=== PATIENT | female | born 1950 | race Caucasian/White ===

== ENCOUNTER 2016-04-11 17:52 | Emergency (ER) | payer OTHER ==
[~2016-04-11] VITALS: Ht 167.6 cm; Wt 95.6 kg
[2016-04-11 18:00] VITALS: TEMP 36.5; Ht 167.6 cm; Wt 95.6 kg
[2016-04-11] MEDS ORDERED: GABA-113 PO (18:25)
[2016-04-11] MEDS ORDERED: LEVO88TA3 PO (18:25)
[2016-04-11] MEDS ORDERED: CLON1TAB3 PO (18:25)
[2016-04-11] MEDS ORDERED: SIMV-151 PO (18:25)
[2016-04-11] MEDS ORDERED: NRV/5 PO (18:25)
[2016-04-11] MEDS ORDERED: LISI-461 PO (18:25)
[2016-04-11] MEDS ORDERED: CYAN10005 PO (18:25)
[2016-04-11] MEDS ORDERED: AGG PO (18:25)
[2016-04-11] MEDS ORDERED: FLUO40CA8 PO (18:25)
[2016-04-11] MEDS ORDERED: METO25TA3 PO (18:25)
[2016-04-11] MEDS ORDERED: FLV400 PO (18:25)
[2016-04-11] MEDS ORDERED: CLB/200 PO (18:25)
[2016-04-11] MEDS ORDERED: NXM/40 PO (18:25)
[2016-04-11] MEDS ORDERED: VTMD1000 PO (18:25)
[2016-04-11] MEDS ORDERED: HYDROmorphone INJ 2 MG/ML SYR/VIAL IV STA (19:04)
[2016-04-11] MEDS ORDERED: SODIUM CHLORIDE 0.9% 1000ML 500 ML IV STA (19:04)
[2016-04-11] MEDS ORDERED: PROCHLORPERAZINE 5 MG/ML 2 ML VIAL IV STA (19:04)
[2016-04-11] MEDS ORDERED: DiphenhydrAMINE HCL 50 MG/ML VIAL IV STA (19:04)
--- NOTE | 2016-04-11 19:44 | EMERGENCY ROOM VISIT NOTE ---
History Report prepared by Tyler: Jack Tian Under the Supervision of: Dr. Marv Bazzi M.D. First contact with patient: 18:59 Chief Complaint: HEADACHE Stated Complaint: BACK AND CHEST PAIN, ARMS NUMB History of Present Illness The patient is a 65 year old female who presents to the Emergency Room with complaints of an intermittent left sided headache beginning ten days prior to arrival. She currently rates her discomfort as an 8/10 in severity. The patient associates intermittent lip numbness, intermittent left sided face numbness, intermittent bilateral arm heaviness, intermittent left arm tingling, intermittent left jaw pain, and weakness with today's symptoms. She states she was seen at [facility] several days ago, and they believed the patient may have had a mini stroke. The patient notes they performed a CT and two MRIs, in which, one of the MRIs noted something about the fluid around her spine and neck. She states she has a flat spot and the doctors wanted her to see a neurosurgeon. The patient notes she has a follow up appointment with [facility] in five days. She states she took a new pain medication today that did not help her symptoms. The patient notes she also takes Gabapentin. She denies a history of migraines or anyone noting her symptoms may be caused by a migraine. The patient notes she experienced a sharp, burning pain in her head two days ago. She states she takes a low dose Aspirin daily. The patient denies a rash. 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 A total of 10 systems reviewed and were otherwise negative. Past Medical & Surgical Medical Problems: (1) No pertinent past medical history Family History Patient reports no known family medical history. Social History Smoking Status: Never Smoker Marital Status: Occupation Status: unemployed Current/Historical Medications Scheduled Amlodipine Besylate (Amlodipine Besylate), 0.5 TAB PO DAILY Celecoxib (CeleBREX), 200 MG PO DAILY Cholecalciferol (Vitamin D3), 2 TABS PO DAILY Clonazepam (Klonopin), 0.5 MG PO PRN Cyanocobalamin (Vitamin B-12), 1 TAB PO DAILY Dipyridamole/Aspirin (Aggrenox 25-200 mg), 1 CAP PO BID Esomeprazole Magnesium (Nexium), 40 MG PO BID Fluoxetine (Prozac), 40 MG PO DAILY Folic Acid (Folic Acid), 1 TAB PO DAILY Gabapentin (Neurontin), 300 MG PO BID Levothyroxine Sodium (Levothyroxine Sodium), 1 TAB PO DAILY Lisinopril (Lisinopril), 1 TAB PO DAILY Metoprolol Succ (Toprol Xl) (Toprol-Xl), 25 MG PO BID Simvastatin (Simvastatin), 1 TAB PO HS Allergies Coded Allergies: Ibuprofen (Verified Allergy, Unknown, high doses make her sick, 04/11/16) Physical Exam Vital Signs Date Time Temp Pulse Resp B/P Pulse Ox O2 Delivery O2 Flow Rate FiO2 04/11/16 21:27 63 16 107/58 97 04/11/16 20:36 64 16 102/64 96 Room Air 04/11/16 19:42 64 16 113/71 99 Room Air 04/11/16 18:00 36.5 74 22 118/78 98 Room Air Physical Exam GENERAL: Patient is in no acute distress. HEENT: Tender over the left temporal area and left scalp, no rash. No acute trauma, normocephalic atraumatic, mucous membranes moist, no nasal congestion, no scleral icterus. NECK: No stridor, no adenopathy, no meningismus, trachea is midline. LUNGS: Clear to auscultation bilaterally, no wheeze, no rhonchi, breath sounds equal. HEART: Without murmurs gallops or rubs, regular rate and rhythm. ABDOMEN: Soft, nontender, bowel sounds positive, no hernias, no peritonitis. EXTREMITIES: No cyanosis or edema, full range of motion of all the joints without pain or difficulty, no signs for acute trauma. NEUROLOGIC: Oriented x 3, no acute motor or sensory deficits, no focal weakness. No pronator drift or cerebellar dysfunction. SKIN: No rash, no jaundice, no diaphoresis. Medical Decision & Procedures ER Provider Diagnostic Interpretation: 04/01: [facility] CT Brain showed no acute findings. No evidence for bleeding. 04/02: [facility] Brain MRI did not show any evidence for an acute stroke. Carotid Artery US that showed no concerning stenosis. 04/03: [facility] CT scan of Cervical Spine showed a lot of arthritis. Some anterior CSF space narrowing from the degenerative change. 04/06: [facility] Left Upper Extremity Ultrasound showed no DVT. Laboratory Results 04/11/16 19:35 Red Blood Count 4.17, Mean Corpuscular Volume 86.1, Mean Corpuscular Hemoglobin 29.3, Mean Corpuscular Hemoglobin Concent 34.0, Mean Platelet Volume 9.3, Neutrophils (%) (Auto) 43.7, Lymphocytes (%) (Auto) 45.8, Monocytes (%) (Auto) 8.7, Eosinophils (%) (Auto) 1.2, Basophils (%) (Auto) 0.5, Neutrophils # (Auto) 3.22, Lymphocytes # (Auto) 3.38, Monocytes # (Auto) 0.64, Eosinophils # (Auto) 0.09, Basophils # (Auto) 0.04 04/11/16 19:35 Test 04/11/16 19:35 White Blood Count 7.38 K/uL (4.8-10.8) Red Blood Count 4.17 M/uL (4.2-5.4) Hemoglobin 12.2 g/dL (12.0-16.0) Hematocrit 35.9 % (37-47) Mean Corpuscular Volume 86.1 fL (80-100) Mean Corpuscular Hemoglobin 29.3 pg (25-34) Mean Corpuscular Hemoglobin Concent 34.0 g/dl (32-36) Platelet Count 270 K/uL (130-400) Mean Platelet Volume 9.3 fL (7.4-10.4) Neutrophils (%) (Auto) 43.7 % Lymphocytes (%) (Auto) 45.8 % Monocytes (%) (Auto) 8.7 % Eosinophils (%) (Auto) 1.2 % Basophils (%) (Auto) 0.5 % Neutrophils # (Auto) 3.22 K/uL (1.4-6.5) Lymphocytes # (Auto) 3.38 K/uL (1.2-3.4) Monocytes # (Auto) 0.64 K/uL (0.11-0.59) Eosinophils # (Auto) 0.09 K/uL (0-0.5) Basophils # (Auto) 0.04 K/uL (0-0.2) RDW Standard Deviation 44.3 fL (36.4-46.3) RDW Coefficient of Variation 14.0 % (11.5-14.5) Immature Granulocyte % (Auto) 0.1 % Immature Granulocyte # (Auto) 0.01 K/uL (0.00-0.02) Erythrocyte Sedimentation Rate 24 mm/hr (0-21) Urine Color YELLOW Urine Appearance CLEAR (CLEAR) Urine pH 5.5 (4.5-7.5) Urine Specific [place] 1.010 (1.000-1.030) Urine Protein NEG (NEG) Urine Glucose (UA) NEG (NEG) Urine Ketones NEG (NEG) Urine Occult Blood NEG (NEG) Urine Nitrite NEG (NEG) Urine Bilirubin NEG (NEG) Urine Urobilinogen NEG (NEG) Urine Leukocyte Esterase NEG (NEG) Anion Gap 7.0 mmol/L (3-11) Est Creatinine Clear Calc Drug Dose 76.2 ml/min Estimated GFR () 81.0 Estimated GFR (Non- 69.9 BUN/Creatinine Ratio 15.9 (10-20) Calcium Level 8.8 mg/dl (8.5-10.1) Lyme Disease IgG Antibody NEG (NEG) Lyme Disease IgM Antibody NEG (NEG) Laboratory results reviewed by me. Medications Administered Medications (Trade) Dose Ordered Sig/June Route Start Time Stop Time Status Last Admin Dose Admin Sodium Chloride (Nss 1000ml) 500 ml @ 999 mls/hr Q31M STAT IV 04/11/16 19:04 04/11/16 19:34 DC 04/11/16 19:43 999 MLS/HR Prochlorperazine Edisylate (Compazine Inj) 5 mg NOW STAT IV 04/11/16 19:04 04/11/16 19:11 DC 04/11/16 19:43 5 MG Diphenhydramine HCl (Benadryl Inj) 25 mg NOW STAT IV 04/11/16 19:04 04/11/16 19:11 DC 04/11/16 19:43 25 MG Hydromorphone HCl (Dilaudid Inj) 0.5 mg NOW STAT IV 04/11/16 19:04 04/11/16 19:11 DC 04/11/16 19:43 0.5 MG ECG Indication: weakness Rate (beats per minute): 71 Rhythm: normal sinus Findings: no acute ischemic change, no ectopy ED Course 1900: The patient was evaluated in room C12B. A complete history and physical exam was performed. 1903: Ordered Dilaudid Inj 0.5 mg IV, Benadryl Inj 25 mg IV, Compazine Inj 5 mg IV, Sodium Chloride 500 ml @ 999 mls/hr IV. 2104: Reevaluated the patient. Discussed results and discharge instructions: She verbalized understanding and agreement. The patient is ready for discharge. Medical Decision The differential diagnoses include but are not limited to: migraine headache, complex migraine, temporal arteritis, stroke, intracranial bleeding, medication reaction, Lyme Disease. There is no leukocytosis or concerning anemia. No significant electrolyte abnormality, kidney failure or hepatitis. Sedimentation rate is not significantly elevated making temporal arteritis less likely. Urinalysis does not show infection. Lyme disease testing is negative. EKG shows a normal sinus rhythm, no acute ischemia. I did review the patient's brain CT, C-spine CT, brain MRI, left upper extremity venous ultrasound, carotid ultrasound results obtained at the [facility]. They were essentially all unremarkable except for arthritis of her cervical spine. The patient received IV saline, IV Compazine, IV Benadryl and IV Dilaudid, she feels improved. I do think she is stable for discharge. She does have an upcoming neurology appointment. She has no focal neurologic deficits on exam. The left scalp is tender with palpation. Her symptoms have been ongoing now for over a week. Certainly, migraine or complex migraine is a possible expiration for her symptoms. Impression Primary Impression: Left-sided headache Additional Impression: Left arm numbness Scribe Attestation The scribe's documentation has been prepared under my direction and personally reviewed by me in its entirety. I confirm that the note above accurately reflects all work, treatment, procedures, and medical decision making performed by me. Departure Information Dispostion Home / Self-Care Referrals Lizette Cowan PA-C (PCP) Forms HOME CARE DOCUMENTATION FORM, IMPORTANT VISIT INFORMATION Patient Instructions My [facility] Additional Instructions see neurology as scheduled return if worsening as discussed lab testing today was all ok proper sleep and hydration are important Problem Qualifiers
[2016-04-11 20:03] LABS: BASO % 0.5 %; BASO ABS # 0.04 K/uL (0-0.2); COMPLETE YES; EOS % 1.2 %; HEMATOCRIT 35.9 % (37-47); IG% 0.1 %; LYMPH % 45.8 %; LYMPH ABS # 3.38 K/uL (1.2-3.4); MEAN CELL VOLUME 86.1 fL (80-100); MEAN CORPUSCULAR HEMOGLOBIN 29.3 pg (25-34); MEAN PLATELET VOLUME 9.3 fL (7.4-10.4); MONO % 8.7 %; NEUT % 43.7 %; PLATELET COUNT 270 K/uL (130-400); RED BLOOD COUNT 4.17 M/uL (4.2-5.4); WHITE BLOOD COUNT 7.38 K/uL (4.8-10.8)
[2016-04-11 20:09] LABS: URINE APPEARANCE CLEAR (CLEAR); URINE BILIRUBIN NEG (NEG); URINE COLOR YELLOW; URINE NITRITE NEG (NEG); URINE PH 5.5 (4.5-7.5); UROBILINOGEN NEG (NEG); ZZUR CULT IF INDIC CLEAN CATCH NO
[2016-04-11 20:23] LABS: BUN/CREATININE RATIO 15.9 (10-20); CALCIUM 8.8 mg/dl (8.5-10.1); CREATININE 0.88 mg/dl (0.60-1.20); POTASSIUM 3.8 mmol/L (3.5-5.1)
[2016-04-11 20:25] LABS: MANUAL MICROSCOPIC REQUIRED? NO; REVIEW REQ? NO
[2016-04-11 20:59] LABS: LYME DISEASE AB IGG NEG (NEG); LYME DISEASE AB IGM NEG (NEG)
[2016-04-11 21:27] VITALS: BP 107/58; PULSE 63; O2SAT 97
== END 2016-04-11 21:20 | disposition home or self-care (01) ==
LOC: C.EDB 17:56 → C.EDC 21:20
DX: R51 Headache (principal); R20.0 Anesthesia of skin; Z79.82 Long term (current) use of aspirin; Z79.899 Other long term (current) drug therapy

== ENCOUNTER 2019-10-16 05:49 | Inpatient (IN) ==
--- NOTE | 2019-07-31 13:42 | History & Physical Report ---
Date of Service July 31, 2019 Assessment & Plan (1) Myelopathy concurrent with and due to spinal stenosis of cervical region: At this point patient has marked decline in status worsening neurologic function we are recommending urgent anterior cervical discectomy and fusion C4-5 and C5-6. Hopefully this will prevent permanent neurologic sequela and weakness. Risk benefits pros cons and targets outlined in detail. Present on Admission?: Yes History of Present Illness Chief Complaint: Neck with bilateral arm pain. Primary Care Provider: Lizette Cowan This is a 68-year-old male female that presents with worsening bilateral arm pain left greater than right. She also notices changes with fine motor skills involving her hands. She is undergone extensive course of nonoperative care including injections physical therapy and direct care professional. Allergies Allergy/AdvReac Type Severity Reaction Status Date / Time ibuprofen AdvReac Unknown high doses Verified 05/15/19 09:02 make her sick (N/V) Home Medications Home Medications Medication Instructions Recorded Confirmed Type amlodipine 2.5 mg PO DAILY 05/15/19 05/15/19 History aspirin [Aspir-81] 81 mg PO QAM 05/15/19 05/15/19 History celecoxib [Celebrex] 200 mg PO HS 05/15/19 05/15/19 History cholecalciferol (vitamin D3) 125 mcg PO DAILY 05/15/19 05/15/19 History [Vitamin D3] clonazepam [Klonopin] 0.5 - 1 mg PO UD PRN 05/15/19 05/15/19 History fluoxetine 60 mg PO QAM 05/15/19 05/15/19 History furosemide 20 mg PO QAM 05/15/19 05/15/19 History gabapentin 300 mg PO BID 05/15/19 05/15/19 History levothyroxine [Synthroid] 100 mcg PO QAM 05/15/19 05/15/19 History lisinopril 10 mg PO QAM 05/15/19 05/15/19 History metoprolol succinate 25 mg PO QAM 05/15/19 05/15/19 History pantoprazole 40 mg PO BID 05/15/19 05/15/19 History simvastatin 20 mg PO HS 05/15/19 05/15/19 History tramadol 50 mg PO HS 05/15/19 05/15/19 History Past Med/Surg History Social History Preferred Language: Colombian Communication Ability: Effective 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 She has reasonable testing to the bilateral finger intrinsics 4/5 bilateral biceps and deltoids. Heart is regular in rhythm Lungs clear to auscultation Results & Data Diagnostic Findings MRI of the cervical spine demonstrates evidence of multilevel spondylosis most impressive at C4-5 and C5-6. There is severe central stenosis with disc osteophyte complex and cord contour change across these levels.
--- NOTE | 2019-10-12 11:40 | Anesthesiology Consultation ---
Date of Service October 12, 2019 Assessment & Plan (1) Encounter for pre-operative examination: Chart Review Chart Review: Acceptable Risk for Surgery (pending preop Covid test results and DOS labs ) and Patient NOT seen in Pre Admission Testing -We will order PRP DOS to check kidney function and glucose. Per nursing assessment 10/07/2019, patient denies any recent travel. No known COVID positive contacts or COVID related symptoms. Will await preop COVID testing results. Seen by cardio 06/02/2019 = seen for preop clearance for cervical neck surgery planned for June 08. 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 History of hypertension, dyslipidemia, and prior TIA. "With regards to upcoming surgery she should be able to proceed without further cardiac testing at a low to intermediate risk for periprocedural cardiac event. I have made no other changes." (pt's surgery was rescheduled due to Covid) History Surgery Operation Date: 10/16/19 07:45 Proposed Procedures p C4-C6 Anterior Cervical Discectomy and Fusion, Spinal Cord Monitoring - Hossein Ibarra, Height/Weight Height: 5 ft 5 in Weight: 97.522 kg Allergies Allergy/AdvReac Type Severity Reaction Status Date / Time ibuprofen AdvReac Unknown high doses Verified 10/07/19 15:55 make her sick (N/V) Medications Home Medications Medication Instructions Recorded Confirmed Last Taken amlodipine 2.5 mg PO QAM 05/15/19 10/07/19 Unknown aspirin [Aspir-81] 81 mg PO QAM 05/15/19 10/07/19 Unknown celecoxib [Celebrex] 200 mg PO HS 05/15/19 10/07/19 Unknown cholecalciferol (vitamin D3) 125 mcg PO QAM 05/15/19 10/07/19 Unknown [Vitamin D3] clonazepam [Klonopin] 0.5 - 1 mg PO UD PRN 05/15/19 10/07/19 Unknown fluoxetine 60 mg PO QAM 05/15/19 10/07/19 Unknown furosemide 20 mg PO QAM 05/15/19 10/07/19 Unknown gabapentin 300 mg PO BID 05/15/19 10/07/19 Unknown levothyroxine [Synthroid] 100 mcg PO QAM 05/15/19 10/07/19 Unknown lisinopril 10 mg PO QAM 05/15/19 10/07/19 Unknown metoprolol succinate 25 mg PO QAM 05/15/19 10/07/19 Unknown pantoprazole 40 mg PO BID 05/15/19 10/07/19 Unknown simvastatin 20 mg PO HS 05/15/19 10/07/19 Unknown tramadol 50 mg PO HS 05/15/19 10/07/19 Unknown Past Medical History Medical History Acid reflux Anxiety Arthritis Coronary vasospasm Documented on 2014 cath per cardio. Full cath report not available, but only mild luminal disease per office note. Depression Fatty liver Fluttering sensation of heart Not an issue since initiation of BB Hyperlipidemia Hypertension Hypothyroidism Nonobstructive atherosclerosis of coronary artery JEFERSON (obstructive sleep apnea) Could not tolerate CPAP PONV (postoperative nausea and vomiting) NAUSEA ONLY TIA (transient ischemic attack) 2016 Past Family History Family History Other Family history of diabetes mellitus Past Surgical History Surgical History History of appendectomy History of cardiac cath 12/25/17 2/2 abnormal stress echo. "Mild intimal coronary artery disease without any obstructive lesions." per cardiology note 07/2018 History of cholecystectomy History of colonoscopy History of elbow surgery R, NERVE History of endoscopy History of hysterectomy STOP BANG Total 2 Social History Smoking Status: Never smoker Do You Dip or Chew Tobacco: No Hx Alcohol Use: Yes alcohol intake frequency: holidays/special occasions only Hx Substance Use: No substance use type: prescription drug Testing Laboratory Results 09/25/19= WBC: 7.26 H/H: 12.8/40.6 PLATELETS: 260 SODIUM: 138 POTASSIUM: 3.8 CHLORIDE: 99 CO2: 27 PT: 13.1 INR: 0.99 UA CULTURE: Less than 10,000 colonies/mL. Mixed normal malini. Electrocardiogram Date: 05/21/19 Findings: + NSR @ (70bpm) Chest X-Ray Date: 05/21/19 Findings: + NAD Echocardiogram Date: 04/26/16 EF: 55% Indications: Evaluate cardiac source of emboli with history of TIA. LV normal in size and function. No significant valve disease. No obvious ASD or PFO identified. No left atrial appendage clot identified. No obvious cardiac source of emboli. Stress Test Date: 09/24/17 Type: nuclear Resting EF: 65% Lexiscan myocardial perfusion scan is positive for small area of Lexiscan induced myocardial ischemia. Small sized reversible defect of mild intensity present involving apex and apical inferior segments. EKG changes to IV Lexiscan cannot be interpreted because of acceleration dependent LBBB. Gated SPECT images reveal normal myocardial thickening and wall motion. Cardiac Catheterization Date: 12/25/17 LM- normal. LAD- mild luminal disease LCx- normal RCA- normal EF= 60%.
[2019-10-16] MEDS ORDERED: GABAPENTIN 300 MG CAP PO SCH ×2 (06:00→21:00)
[2019-10-16] MEDS ORDERED: ACETAMINOPHEN 500 MG TAB PO SCH (06:00)
[2019-10-16] MEDS ORDERED: LR 15ML/HR IV SCH (06:00)
[2019-10-16] MEDS ORDERED: CEFAZOLIN 2000MG 2,000 MG/15 ML SYR IV SCH (06:00)
[2019-10-16] MEDS ORDERED: CeleBREX 200 MG CAP PO SCH (06:00)
[2019-10-16] MEDS ORDERED: BACITRACIN INJ 50,000 UNIT VIAL ONE (06:58)
[2019-10-16] MEDS ORDERED: MIDAZOLAM HCL 1 MG/ML 2ML VIAL ONE (07:09)
[2019-10-16] MEDS ORDERED: DEXAMETHASONE SOD INJ 4 MG/ML VIAL ONE (07:09)
[2019-10-16] MEDS ORDERED: ONDANSETRON INJ 2 MG/ML 2 ML VIAL ONE (07:09)
[2019-10-16] MEDS ORDERED: SUCCINYLCHOLINE 100MG/5ML SYR IV ONE (07:09)
[2019-10-16] MEDS ORDERED: ROCURONIUM BROMIDE 10 MG/ML 5 ML VIAL IV ONE (07:09)
[2019-10-16] MEDS ORDERED: fentaNYL citrate 100 MCG/2 ML VIAL ONE ×2 (07:10→08:27)
[2019-10-16 07:14] LABS: BUN Creatinine Ratio 16.9 (10-20); Calcium 9.1 mg/dl (8.5-10.1); Creatinine Clr Calc Pharmacy 65.2 ml/min; Est GFR (Non-African American) 58.7; Potassium 3.4 mmol/L (3.5-5.1)
--- NOTE | 2019-10-16 07:24 | History & Physical Bridge Note ---
Date of Service October 16, 2019 History & Physical Bridge Note I have examined the patient, reviewed the History & Physical and in the interval since the performance of the History & Physical I have noted the following changes of clinical significance: no changes noted
--- NOTE | 2019-10-16 07:25 | History & Physical Report ---
Date of Service October 16, 2019 Assessment & Plan (1) Cervical stenosis of spinal canal: C4-C6 anterior cervical discectomy and fusion Present on Admission?: Yes History of Present Illness Chief Complaint: Neck and arm pain Primary Care Provider: Lizette Cowan This is a 68-year-old female with chronic persistent neck and arm pain. After failing course of nonoperative care is here for surgical invention. Allergies Allergy/AdvReac Type Severity Reaction Status Date / Time ibuprofen AdvReac Mild high doses Verified 10/16/19 06:17 make her sick (N/V) Home Medications Home Medications Medication Instructions Recorded Confirmed Type amlodipine 2.5 mg PO QAM 05/15/19 10/16/19 History aspirin [Aspir-81] 81 mg PO QAM 05/15/19 10/16/19 History celecoxib [Celebrex] 200 mg PO HS 05/15/19 10/16/19 History cholecalciferol (vitamin D3) 125 mcg PO QAM 05/15/19 10/16/19 History [Vitamin D3] clonazepam [Klonopin] 0.5 - 1 mg PO UD PRN 05/15/19 10/16/19 History fluoxetine 60 mg PO QAM 05/15/19 10/16/19 History furosemide 20 mg PO QAM 05/15/19 10/16/19 History gabapentin 300 mg PO BID 05/15/19 10/16/19 History levothyroxine [Synthroid] 100 mcg PO QAM 05/15/19 10/16/19 History lisinopril 10 mg PO QAM 05/15/19 10/16/19 History metoprolol succinate 25 mg PO QAM 05/15/19 10/16/19 History pantoprazole 40 mg PO BID 05/15/19 10/16/19 History simvastatin 20 mg PO HS 05/15/19 10/16/19 History tramadol 50 mg PO HS 05/15/19 10/16/19 History vitamin [id number] acid 1 tab PO DAILY 10/16/19 10/16/19 History Past Med/Surg History Medical History Acid reflux Anxiety Arthritis Coronary vasospasm Documented on 2014 cath per cardio. Full cath report not available, but only mild luminal disease per office note. Depression Fatty liver Fluttering sensation of heart Not an issue since initiation of BB Hyperlipidemia Hypertension Hypothyroidism Nonobstructive atherosclerosis of coronary artery JEFERSON (obstructive sleep apnea) Could not tolerate CPAP PONV (postoperative nausea and vomiting) NAUSEA ONLY TIA (transient ischemic attack) 2016 Surgical History History of appendectomy History of cardiac cath 12/25/17 2/2 abnormal stress echo. 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 Heart regular rate and rhythm. Lungs clear to auscultation. Results & Data Vital Signs (Past 12 Hours) Vital Signs Temp Pulse Resp BP Pulse Ox 10/16/19 06:38 37.2 C 73 20 120/79 97
[2019-10-16] MEDS ORDERED: HYDROmorphone INJ 1 MG/ML SYRINGE IV PRN ×2 (08:04→10:45)
[2019-10-16] MEDS ORDERED: fentaNYL citrate 100 MCG/2 ML VIAL IV PRN (08:04)
[2019-10-16] MEDS ORDERED: ONDANSETRON INJ 2 MG/ML 2 ML VIAL IV PRN ×2 (08:04→10:45)
[2019-10-16] MEDS ORDERED: ATROPINE SULFATE 0.1 MG/ML 10ML SYR IV PRN (08:04)
[2019-10-16] MEDS ORDERED: ePHEDrine sulfate 50 MG/ML AMP IV PRN (08:04)
[2019-10-16] MEDS ORDERED: FLOSEAL HEMOSTATIC MATRIX 10ML TOP ONE (08:28)
[2019-10-16] MEDS ORDERED: ePHEDrine sulfate 50 MG/ML SYR ONE (08:34)
[2019-10-16] MEDS ORDERED: NEOSTIGMINE METHYLSULFATE 1 MG/ML 10ML VIAL ONE (08:34)
[2019-10-16] MEDS ORDERED: PHENYLEPHRINE 100MCG/ML 5ML SYR ONE (08:34)
[2019-10-16] MEDS ORDERED: GLYCOPYRROLATE 0.2 MG/ML VIAL ONE (08:34)
--- NOTE | 2019-10-16 09:09 | Operative Report ---
Post Operative Report Pre & Post Diagnosis Operation Date: 10/16/19 07:45 Pre-Op Diagnosis: Cervical stenosis of spinal canal C4-C6 Post-Op Diagnosis: Cervical stenosis of spinal canal C4-C6 I identified the patient and participated in the time-out.: Yes Procedure Operation Date: 10/16/19 07:45 Actual Procedures #1 anterior cervical discectomy with bilateral foraminotomies C4-5 and C5-6 primary #2 anterior cervical arthrodesis C4-5 and C5-6. #3 placement of Spira 7 mm cage filled with DBM at C4-5 and C5-6. #4 placement of 5 complete screws acr oss C4-5 and C5-6. Surgeon Hossein Ibarra, DO Rod Buster Dre Sandy Estimated Blood Loss 50 Findings Consistent with Post-Op Diagnosis Specimens None Indications This is a 68-year-old female who presents with above-mentioned diagnosis after failing extensive course of nonoperative care is here for surgical invention. Description of Procedure Patient was met with identified informed consent obtained. Patient was then taken to the operative suite underwent an patient placed in supine position Wiley table head Yu waiter/waitress head. All bony prominences well-padded eyes inspected to ensure no external pressure placed upon them. This point the anterior cervical spine was prepped and draped in normal sterile fashion. The assistance of fluoroscopy identified the see 5 vertebral body and a transverse incision was placed on the right anterior aspect of the cervical spinal lines region. Sharp dissection with the assistance of bipolar electrocautery performed down to and exposing the anterior cervical spine from C3-4 to C6. Self-retaining retractors placed. Then performed a complete discectomy of C4-5 out to the uncovertebral joints bilaterally. Wayan distracting pins were utilized to assist in visualization. Removed all posterior annular fibers longitudinal ligament bilateral foraminotomies performed. Endplates were then burred to subcortical bleeding bone and a 7 mm Spira cage filled with DBM tapped in position. Distracting apparatus was removed and I proceeded to C5-C6. A complete discectomy was then performed out to the uncovertebral joints bilaterally. Distracting apparatus again used to remove all posterior annular fibers longitudinal ligament bilateral foraminotomies performed. The ends were then burred to subcortical bleeding bone and a 7 mm Spira cage filled with DBM was then tapped in position. All anterior osteophytes were burred to a smooth surface and a 5 complete and screws applied with the assistance of fluoroscopy. Incision was then copiously irrigated explored to ensure no damage to surrounding structures remaining bleeding. 10 round MARK drain inserted. The incision was then closed with 2 Vicryl in a fashion of 4 Monocryl for final skin closure. Steri-Strip sterile dressings placed. Patient waken taken to PACU stable condition. Please note spinal cord monitoring visualized at the procedure no changes noted. Lastly Dre record was present at the entire surgery involved the patient positioning complex portions of the surgery and final skin closure. I attest to the content of the Intraoperative Record and any orders documented therein. Any exceptions are noted below.
--- NOTE | 2019-10-16 09:42 | Fluoroscopy Report ---
FL cervical 2-3V CLINICAL HISTORY: C4-6 ACDF COMPARISON STUDY: None. FLUOROSCOPY TIME: 13 seconds. FLUOROSCOPIC IMAGES: 2 FINDINGS: Images demonstrate a C4-C6 anterior discectomy and fusion. Hardware is intact. The sponge m arker on the first image is not shown on the second image. Endotracheal tube is partially imaged. IMPRESSION: Fluoroscopy was provided for C4-C6 anterior discectomy and fusion. ACT 112: Negative or not required by law. Electronically signed by: Garrett Bryan M.D. 10/16/2019 9:41 AM
--- NOTE | 2019-10-16 10:25 | Anesthesiology Progress Note ---
Date of Service October 16, 2019 Anesthesia Post Procedure Vital Signs Vital Signs: Temp Pulse Pulse Resp BP BP Pulse Ox 10/16/19 10:15 68 14 130/68 94 10/16/19 10:05 67 16 120/63 94 10/16/19 09:55 66 14 121/70 94 10/16/19 09:45 66 13 123/64 95 10/16/19 09:35 70 15 131/60 94 10/16/19 09:25 36.1 C L 68 19 136/74 94 10/16/19 06:38 37.2 C 73 20 120/79 97 Pain Intensity Posterior Neck: Pain Intensity: 5 Neck: Pain Intensity: 2 Transfer of Care Handoff Completed per policy Notes Mental Status: alert / awake / arousable and participated in evaluation Patient Amnestic to Procedure: Yes Nausea / Vomiting: adequately controlled Pain: adequately controlled Airway Patency, RR, SpO2: stable & adequate BP & HR: stable & adequate Hydration State: stable & adequate Anesthetic Complications: no major complications apparent and Pt Satisfied with anesthetic care
[2019-10-16] MEDS ORDERED: FAMOTIDINE 20 MG TAB PO PRN (10:45)
[2019-10-16] MEDS ORDERED: LORazepam 0.5 MG TAB PO PRN (10:45)
[2019-10-16] MEDS ORDERED: HYDROmorphone INJ 0.5 MG/0.5 ML SYR IV PRN (10:45)
[2019-10-16] MEDS ORDERED: ALUMINUM/MAGNESIUM SUSP 30 ML UDC PO PRN (10:45)
[2019-10-16] MEDS ORDERED: ONDANSETRON 4 MG OD TAB PO PRN (10:45)
[2019-10-16] MEDS ORDERED: LORazepam 0.5 MG/1 ML VIAL IV PRN (10:45)
[2019-10-16] MEDS ORDERED: TRAMADOL HCL 50 MG TABLET PO PRN (10:45)
[2019-10-16] MEDS ORDERED: ACETAMINOPHEN 1,000 MG/100 ML VIAL IV PRN (10:45)
[2019-10-16] MEDS ORDERED: DO NOT ADMINISTER PNEUMOCOCCAL VACCINE PRN (10:45)
[2019-10-16] MEDS ORDERED: SOD PHOSPHATE/SOD BIPHOSPHATE ENEMA 132 ML BTL PR PRN (10:45)
[2019-10-16] MEDS ORDERED: DEXAMETHASONE SOD PHOSPHATE 8 MG in SYRINGE 0 ML IV PRN (10:45)
[2019-10-16] MEDS ORDERED: METOCLOPRAMIDE HCL INJ 5 MG/ML 2 ML VIAL IV PRN (10:45)
[2019-10-16] MEDS ORDERED: RACEPINEPHRINE 2.25% NEBU SOLN 0.5 ML VIAL INH PRN (10:45)
[2019-10-16] MEDS ORDERED: NALOXONE HCL 0.4 MG/1 ML VIAL/CARP IV PRN (10:45)
[2019-10-16] MEDS ORDERED: ACETAMINOPHEN 500 MG TAB PO PRN (10:45)
[2019-10-16] MEDS ORDERED: PROMETHAZINE HCL 12.5 MG in SODIUM CHLORIDE 0.9% 50 ML IV PRN (10:45)
[2019-10-16] MEDS ORDERED: MAGNESIUM HYDROXIDE SUSP 30 ML UDC PO PRN (10:45)
[2019-10-16] MEDS ORDERED: DO NOT ADMINISTER FLU VACCINE PRN (10:45)
[2019-10-16] MEDS: SODIUM CHLORIDE 0.9% 1000ML 1,000 ML IV SCH ×2 (11:10→21:01)
[2019-10-16] MEDS: OXYCODONE HCL IR 5 MG TAB (IMMEDIATE RELEASE) PO PRN ×2 (11:13→21:06)
--- NOTE | 2019-10-16 11:50 | Hospitalist Consultation ---
Date of Consultation October 16, 2019 Assessment & Plan (1) Cervical stenosis of spinal canal: - POD#0 C4-C6 [address]CDF [address] Dr[address] Ibarra - activity and wound care orders as per ortho - pain control with bowel regimen - PT/OT - monitor H/H for acute blood loss anemia and transfuse blood products PRN - EBL 50 cc (2) CAD (coronary artery disease): -Mild, nonobstructive by cardiac cath 2017 -Appears stable, no reports of chest pain -Continue aspirin, statin, beta-truong, EVER inhibitor (3) Hypertension: -BP controlled, continue metoprolol, lisinopril, furosemide (4) JEFERSON (obstructive sleep apnea): -Noncompliant with CPAP -Monitor nocturnal pulse ox (5) Hypothyroidism: -Continue levothyroxine (6) DVT prophylaxis: -Teds/SCDs as per spine Ortho Thank you for this consultation. We will follow the patient with you during their hospital stay. You can reach a member of the [facility] Hospitalist Team 08/10 via pager @ [phone]. Supervising Physician Co-Signing Physician Notes Pt seen and examined by me, care coordinated with BRITTANY Dalton, please refer to her note above for further details. Patient is a 68-year-old obese female with history of hypothyroidism, hyperlipidemia, hypertension, JEFERSON, not using CPAP due to recurrent respiratory infections, history of TIA in 2017, history of coronary vasospasms with mild CAD, cervical stenosis C4-C6, who is now status post C4-C6 ACDF with Dr. Ibarra. Currently patient is lying in bed, in no acute distress. Denies any fevers, chills, chest pain, shortness of breath, abdominal pain, nausea or vomiting. Seemingly tolerated procedure well. Currently using nasal cannula. MARK drain visualized, cervical collar not applied yet. Patient had some sips of water so far, did not void since surgery. She is alert and oriented and answering questions appropriately. Lungs are clear to auscultation bilaterally, without any wheezing rhonchi or crackles. Heart sounds regular. Abdomen is soft, nontender, nondistended, obese, positive bowel sounds. She is moving all 4 extremities spontaneously and without difficulty. States that prior to surgery, she had some pain radiating from her neck to her both arms, currently denies any arm pain, she has some expected neck pain postsurgically. Continue to monitor pulse ox, monitor H&H and vital signs. August Verdugo MD History of Present Illness Reason for Consultation: Postop medical management Requesting Physician: Dr. Ibarra Attending Physician: Dr. Verdugo History of Present Illness 68-year-old female with PMH HLD, HTN, mild CAD, JEFERSON not on CPAP, and other problems listed below who is status post C4-C6 ACDF today by Dr. Ibarra. Postoperatively, the patient is doing well. She reports her pain is well controlled. Denies weakness, numbness, tingling to the upper extremities. No chest pain or shortness of breath. No difficulty swallowing. Denies abdominal pain or nausea. No lightheadedness or dizziness. She has not voided since surgery. Allergies Allergy/AdvReac Type Severity Reaction Status Date / Time ibuprofen AdvReac Mild high doses Verified 10/16/19 06:17 make her sick (N/V) Home Medications Home Medications Medication Instructions Recorded Confirmed Type amlodipine 2.5 mg PO QAM 05/15/19 10/16/19 History aspirin [Aspir-81] 81 mg PO QAM 05/15/19 10/16/19 History celecoxib [Celebrex] 200 mg PO HS 05/15/19 10/16/19 History cholecalciferol (vitamin D3) 125 mcg PO QAM 05/15/19 10/16/19 History [Vitamin D3] clonazepam [Klonopin] 0.5 - 1 mg PO UD PRN 05/15/19 10/16/19 History fluoxetine 60 mg PO QAM 05/15/19 10/16/19 History furosemide 20 mg PO QAM 05/15/19 10/16/19 History gabapentin 300 mg PO DAILY 05/15/19 10/16/19 History levothyroxine [Synthroid] 100 mcg PO QAM 05/15/19 10/16/19 History lisinopril 10 mg PO QAM 05/15/19 10/16/19 History metoprolol succinate 25 mg PO QAM 05/15/19 10/16/19 History pantoprazole 40 mg PO BID 05/15/19 10/16/19 History simvastatin 20 mg PO HS 05/15/19 10/16/19 History tramadol 50 mg PO HS 05/15/19 10/16/19 History oxycodone 5 mg PO Q6H PRN #14 tab 10/16/19 Rx tramadol 50 mg PO Q6H PRN #20 tab 10/16/19 Rx vitamin T63-kendr acid 1 tab PO DAILY 10/16/19 10/16/19 History Patient History Medical History (Updated 10/16/19 @ 12:01 by BRITTANY Dalton) Acid reflux Anxiety Arthritis CAD (coronary artery disease) Coronary vasospasm Documented on 2014 cath per cardio. Full cath report not available, but only mild luminal disease per office note. Depression Fatty liver Fluttering sensation of heart Not an issue since initiation of BB Hyperlipidemia Hypertension Hypothyroidism Nonobstructive atherosclerosis of coronary artery JEFERSON (obstructive sleep apnea) Could not tolerate CPAP TIA (transient ischemic attack) 2016 Surgical History History of appendectomy History of cardiac cath 12/25/1704/19 abnormal stress echo. 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 Beliefs That Will Affect Care: None Current Living Situation: Significant Other Other Information That Helps Us Care for You: No Feels Safe at Home: Yes Safety Concerns: Feels Safe At This Time Review of Systems Review of Systems: ROS per HPI, all other systems reviewed and negative Physical Exam Constitutional: WD/WN, vitals as above Eyes: PERRL, conjunctivae normal, anicteric sclerae ENMT: external ear and nose normal, oropharynx normal Neck: Anterior neck dressing dry and intact, drain in place draining bloody drainage Respiratory: normal respiratory effort, lungs clear to auscultation Cardiovascular: Rate/Rhythm: regular rate and regular rhythm Vessels: normal peripheral pulses Extremities: no edema Gastrointestinal (Abdomen): normal bowel sounds, soft, nontender, no hepatosplenomegaly Musculoskeletal: no cyanosis or clubbing, extremities motor strength 5/5 Skin: no rashes, warm and dry Neurologic: PERRL, EOMI, accommodation nl, no face palsy, no dysarthria Psychiatric: A+Ox3, euthymic affect Results & Data Results & Data ([facility]) Vital Signs (Past 12 Hours) Vital Signs Temp Pulse Pulse Resp BP BP Pulse Ox 10/16/19 11:44 36.6 C 70 16 114/68 94 10/16/19 10:45 36.5 C 69 16 119/75 93 10/16/19 10:25 36.8 C 70 14 124/66 94 10/16/19 10:15 68 14 130/68 94 10/16/19 10:05 67 16 120/63 94 10/16/19 09:55 66 14 121/70 94 10/16/19 09:45 66 13 123/64 95 10/16/19 09:35 70 15 131/60 94 10/16/19 09:25 36.1 C L 68 19 136/74 94 10/16/19 06:38 37.2 C 73 20 120/79 97 Laboratory Results 10/16/19 10/16/19 10/16/19 Range/Units 06:30 06:30 06:30 Sodium 140 (136-145) mmol/L Potassium 3.4 L (3.5-5.1) mmol/L Chloride 107 (98-107) mmol/L Carbon Dioxide 29 (21-32) mmol/L Anion Gap 4.0 (3-11) BUN 17 (7-18) mg/dl Creatinine 1.00 (0.6-1.2) mg/dl Est Cr Clr Drug Dosing 65.2 ml/min Est GFR ( Amer) 68.0 Est GFR (Non-Af Amer) 58.7 BUN/Creatinine Ratio 16.9 (10-20) Glucose 107 H (70-99) mg/dl Calcium 9.1 (8.5-10.1) mg/dl Hepatitis C Ab Screen Pending Blood Type O Negative Antibody Screen NEGATIVE Crossmatch See Detail Medications Administered Current Inpatient Medications Acetaminophen (Tylenol) 1,000 mg PO PREOP RUBEN Stop: 10/16/19 18:00 Last Admin: 10/16/19 07:07 Dose: 1,000 mg Documented by: Acetaminophen (Tylenol) 1,000 mg PO Q8H PRN PRN Reason: MILD Pain Scale 1,2,3 & Pre PT Stop: 11/15/19 10:44 Al Hydrox/Mg Hydrox/Simethicone (Maalox) 30 ml PO Q6H PRN PRN Reason: Dyspepsia Stop: 11/15/19 10:44 Amlodipine Besylate (Norvasc) 2.5 mg PO QAM [facility] Stop: 11/16/19 08:59 Aspirin (Ecotrin Ectab) 81 mg PO QAM [facility] Stop: 11/16/19 08:59 Bisacodyl (Dulcolax) 10 mg IA DAILY PRN PRN Reason: Constipation Stop: 11/17/19 09:16 Celecoxib (Celebrex) 200 mg PO PREOP RUBEN Stop: 10/16/19 18:00 Last Admin: 10/16/19 07:06 Dose: 200 mg Documented by: Diphenhydramine HCl (Benadryl Capsule) 25 mg PO Q6H PRN PRN Reason: Allergic Rhinitis/Insomnia Stop: 11/15/19 10:44 Epinephrine (Raccemic Epinephrine 2.25% 0.5ml) 0.5 ml INH NOW PRN PRN Reason: if stridor present Stop: 11/15/19 10:44 Famotidine (Pepcid) 20 mg PO Q12H PRN PRN Reason: Dyspepsia Stop: 11/15/19 10:44 Fluoxetine HCl (Prozac) [facility] [place] Stop: 11/16/19 08:59 Furosemide (Lasix) [facility] [place] Stop: 11/16/19 08:59 Gabapentin (Neurontin) 300 mg PO PREOP RUBEN Stop: 10/16/19 18:00 Last Admin: 10/16/19 07:06 Dose: Not Given Documented by: Gabapentin (Neurontin) 300 mg PO DAILY [facility] Stop: 11/16/19 08:59 Hydromorphone HCl (Dilaudid) 0.5 mg IV Q3H PRN PRN Reason: MOD pain (scale 4-6) & Pre PT Stop: 10/30/19 10:44 Hydromorphone HCl (Dilaudid) 1 mg IV Q3H PRN PRN Reason: severe pain (scale 7-10) Stop: 10/30/19 10:44 Hydroxyzine HCl (Vistaril) 25 mg PO Q8H PRN PRN Reason: Anxiety Stop: 11/15/19 10:44 Cefazolin Sodium (Ancef 2000mg) 2,000 mg in 15 mls @ 3.75 mls/min IV PREOP RUBEN; Protocol Stop: 10/17/19 05:59 Last Admin: 10/16/19 12:02 Dose: Not Given Documented by: Lactated Ringer's (Lr) 1,000 mls @ 15 mls/hr IV .Q24H RUBEN Stop: 10/17/19 05:59 Last Infusion: 10/16/19 07:53 Dose: Infused Documented by: Lorazepam (Ativan) 0.5 mg in 1 mls @ 1 mls/min IV Q8H PRN PRN Reason: Sedation/Anxiety Stop: 11/15/19 10:44 Acetaminophen (Ofirmev) 1,000 mg in 100 mls @ 400 mls/hr IV Q8H PRN PRN Reason: Pain Rating 1-3 & Pre PT Stop: 10/17/19 09:18 Dexamethasone Sodium Phosphate (8 mg/ Syringe) 2 mls @ 1 mls/min IV NOW PRN PRN Reason: stridor Stop: 11/15/19 10:44 Sodium Chloride (Nss 1000ml) 1,000 mls @ 100 mls/hr IV .Q10H RUBEN Stop: 11/15/19 10:44 Last Admin: 10/16/19 11:10 Dose: 100 mls/hr Documented by: Promethazine HCl 12.5 mg/ (Sodium Chloride) 50.5 mls @ 202 mls/hr IV Q6H PRN PRN Reason: Nausea &/or Vomiting Stop: 11/15/19 10:44 Cefazolin Sodium (Ancef 2000mg) 2,000 mg in 15 mls @ 3.75 mls/min IV Q8H RUBEN; Protocol Stop: 10/16/19 22:03 Influenza Virus Vaccine Quadrival (Flu Vaccine, Do Not Administer) 1 ea N/A PRN PRN PRN Reason: Notification Stop: 11/15/19 10:44 Levothyroxine Sodium (Synthroid) 100 mcg PO DAILYBB RUBEN Stop: 11/16/19 06:29 Lisinopril (Zestril) 10 mg PO QAM [facility] Stop: 11/16/19 08:59 Lorazepam (Ativan) 0.5 mg PO Q8H PRN PRN Reason: sedation/anxiety Stop: 11/15/19 10:44 Magnesium Hydroxide (Milk Of Magnesia) 30 ml PO Q24H PRN PRN Reason: Constipation Stop: 11/15/19 10:44 Metoclopramide HCl (Reglan) 10 mg IV Q6H PRN PRN Reason: Nausea &/or Vomiting Stop: 11/15/19 10:44 Metoprolol Succinate (Toprol Xl) 25 mg PO QAM [facility] Stop: 11/16/19 08:59 Naloxone HCl (Narcan) 0.1 mg IV Q5M PRN PRN Reason: Oversedation/respiratory dep Stop: 11/15/19 10:44 Ondansetron HCl (Zofran) 4 mg IV Q6H PRN PRN Reason: Nausea &/or Vomiting Stop: 11/15/19 10:44 Ondansetron HCl (Zofran Odt) 4 mg PO Q6H PRN PRN Reason: Nausea Stop: 11/15/19 10:44 Oxycodone HCl (Roxicodone Immediate Rel) 5 - 10 mg PO Q4H PRN PRN Reason: Pain & Pre PT Stop: 10/30/19 10:44 Last Admin: 10/16/19 11:13 Dose: 5 mg Documented by: Pantoprazole Sodium (Protonix) 40 mg PO BID [facility] Stop: 11/15/19 20:59 Pneumococcal Polyvalent Vaccine (Pneumococcal Vacc, Do Not Administer) 1 ea N/A PRN PRN PRN Reason: Notification Stop: 11/15/19 10:44 Polyethylene Glycol (Miralax Powder Packet) 17 gm PO Q6 [facility] Stop: 11/16/19 09:16 Senna/Docusate Sodium (Senokot S) 2 tab PO HS [facility]EN Stop: 11/15/19 20:59 Simvastatin (Zocor) 20 mg PO HS [facility] Stop: 11/15/19 20:59 Sodium Biphosphate/Sodium Phosphate (Fleet Enema) 132 ml IA ONE PRN PRN Reason: Constipation Stop: 11/15/19 10:44 Tramadol HCl (Ultram) 50 - 100 mg PO Q4H PRN PRN Reason: Moderate-Severe pain & Pre PT Stop: 11/15/19 10:44 Vitamin B Complex (Vitamin B Complex) 1 tab PO DAILY [facility] Stop: 11/16/19 08:59
[2019-10-16] MEDS ORDERED: POTASSIUM CHLORIDE 20 MEQ/15 ML UDC PO ONE (12:07)
[2019-10-16] MEDS: CEFAZOLIN 2000MG 2,000 MG/15 ML SYR IV SCH ×2 (15:05→22:35)
[2019-10-16] MEDS ORDERED: COUGH DROP (SUGAR FREE) LOZ 24 LOZ/1 BOX BUCCAL ONE (20:02)
[2019-10-16] MEDS ORDERED: DOCUSATE SODIUM/SENNA 50/8.6MG TAB PO SCH (21:00)
[2019-10-16] MEDS ORDERED: SIMVASTATIN 20 MG TAB PO SCH (21:00)
[2019-10-16] MEDS: PANTOprazole 40 MG TAB PO SCH (21:06)
[2019-10-16 21:49] VITALS: TEMP 97.7
[2019-10-17 06:02] LABS: Hemoglobin 11.5 g/dL (12.0-16.0); Mean Corpuscular Hemoglobin 29.4 pg (25-34); Mean Corpuscular Hgb Conc 33.8 g/dL (32-36); Mean Platelet Volume 9.4 fL (7.4-10.4); Platelet Count 261 K/uL (130-400); RDW Standard Deviation 44.4 fL (36.4-46.3); Red Blood Count 3.91 M/uL (4.2-5.4); White Blood Count 11.99 K/uL (4.8-10.8)
[2019-10-17] MEDS ORDERED: LEVOTHYROXINE SODIUM 100 MCG TABLET PO SCH (06:30)
[2019-10-17 06:43] LABS: BUN Creatinine Ratio 13.7 (10-20); Calcium 8.9 mg/dl (8.5-10.1); Creatinine Clr Calc Pharmacy 73.3 ml/min; Est GFR (African American) 78.3; Est GFR (Non-African American) 67.5; Potassium 4.4 mmol/L (3.5-5.1)
[2019-10-17 07:43] VITALS: BP 123/73
--- NOTE | 2019-10-17 08:00 | Discharge Summary ---
Date of Service October 17, 2019 Admission HPI Per Admitting Provider This is a 68-year-old female with chronic persistent neck and arm pain. After failing course of nonoperative care is here for surgical invention. Discharge Data Consultations 10/16/19 10:45 Consult Hospitalist Routine Procedures Performed Operation Date: 10/16/19 07:45 Actual Procedures p C4-C6 Anterior Cervical Discectomy and Fusion, Spinal Cord Monitoring - Hossein Ibarra DO Hospital Course (1) Myelopathy concurrent with and due to spinal stenosis of cervical region: Patient is a pleasant 68-year-old female with history physical examination and radiographic images consistent with the above diagnosis for this reason she was brought to the operating room on 10/16/2019 underwent above-mentioned procedure. This performed by Dr. Ibarra under general anesthesia. Patient left the operating room with a MARK drain in place and was transferred to PACU in stable condition. She was then transferred to the orthopedic floor. She was placed on GI DVT prophylaxis. She did well throughout the night with swallowing without difficulties and postop day 1 was deemed safe for home discharge. She was to change dressing once daily until there is no drainage once there is no drainage she may shower. She is to wear cervical collar at all times except for meals and for skin care. She was to return to follow-up in approximately 2 weeks or sooner if she develops any fevers chills or increased pain.
[2019-10-17] MEDS: PANTOprazole 40 MG TAB PO SCH (08:06)
[2019-10-17] MEDS: OXYCODONE HCL IR 5 MG TAB (IMMEDIATE RELEASE) PO PRN (08:14)
[2019-10-17] MEDS ORDERED: FUROSEMIDE 20 MG TAB PO SCH (09:00)
[2019-10-17] MEDS ORDERED: ASPIRIN 81 MG ECTAB PO SCH (09:00)
[2019-10-17] MEDS ORDERED: METOPROLOL SUCC 25MG EXT REL TAB PO SCH (09:00)
[2019-10-17] MEDS ORDERED: GABAPENTIN 300 MG CAP PO SCH (09:00)
[2019-10-17] MEDS ORDERED: VITAMIN B COMPLEX TAB PO SCH (09:00)
[2019-10-17] MEDS ORDERED: lisinopriL 10 MG TAB PO SCH (09:00)
[2019-10-17] MEDS ORDERED: FLUOXETINE HCL 20 MG CAP PO SCH (09:00)
[2019-10-17] MEDS ORDERED: AMLODIPINE BESYLATE 5 MG TAB PO SCH (09:00)
[2019-10-17] MEDS ORDERED: POLYETHYLENE (MIRALAX) 17 GM PACK PO SCH (09:17)
[2019-10-17 11:19] VITALS: PULSE 67; O2SAT 90
[2019-10-18] MEDS ORDERED: bisacodyL 10 MG SUPP PR PRN (09:17)
== END 2019-10-17 11:36 | disposition home or self-care (01) | DRG 472 ==
LOC: ASU 05:49 → 3E 09:40